=== PATIENT | female | born 1980 | race Caucasian/White ===

== ENCOUNTER 2016-10-10 18:07 | Inpatient (IN) | payer BC ==
[~2016-10-10] VITALS: Ht 172.7 cm; Wt 77.7 kg
[2016-10-10] MEDS ORDERED: SODIUM CHLORIDE 0.9% 1000ML 1,000 ML IV STA ×2 (18:32)
--- NOTE | 2016-10-10 18:49 | EMERGENCY ROOM VISIT NOTE ---
History Report prepared by Lexis: Dee Dee Berg Under the Supervision of: Dr. Leyla Foreman M.D. First contact with patient: 18:32 Chief Complaint: DIZZY Stated Complaint: KETOACIDOSIS,DIZZY Nursing Triage Summary: "Was traveling from [place] to [place] and my ketoacidosis is out of control. BSG >450" Has insulin pump. Dizzy, vomiting, weak. History of Present Illness The patient is a 35 year old female who presents to the Emergency Room with complaints of persistent vomiting that started around 1500 today. She states that she has been vomiting every 30 minutes. Associated symptoms include dizziness and weakness. The patient is a Type 1 diabetic with an insulin pump. She states that she has not been checking her blood sugar as regularly as she should be. When she does check it, it has consistently been over 450 for the past few days. The patient was traveling from [place] to [place] today when the vomiting started. She believes that she is experiencing ketoacidosis at this time. The patient adds that she suffers from depression, which she believes has caused her to be inconsistent with checking her blood sugar. The patient denies nausea at this time. Source of History: patient Onset: 1500 today Position: other (Global ) Timing: other (Persistent) Modifying Factors (Worsening): other (None) Associated Symptoms: + weakness, No nausea Review of Systems See HPI for pertinent positives & negatives. A total of 10 systems reviewed and were otherwise negative. Past Medical & Surgical Medical Problems: (1) Depression (2) Type 1 diabetes Surgical Problems: (1) History of appendectomy Family History FH: cancer FH: diabetes mellitus FH: hypertension FH: lung disease Social History Smoking Status: Never Smoker Drug Use: none Marital Status: single Housing Status: lives alone Occupation Status: employed Current/Historical Medications Scheduled Cephalexin (Keflex), 1 CAP PO BID Clonazepam (Klonopin), 0.5 MG PO BID Etonogestrel/Ethinyl Estradiol (Nuvaring), 1 EA VAGRING MONTHLY Ferrous Sulfate (Ferrous Sulfate), 325 MG PO BID Hydroxyzine Pamoate (Vistaril), 25 MG PO QID Insulin Human Lispro (Insulin Humalog Pump ), 1 EA N/A UD Lurasidone Hcl (Latuda), 60 MG PO DAILY Multiple Vitamins W/ Minerals (Womens One Daily), 1 TAB PO DAILY Vilazodone Hcl (Viibryd), 10 MG PO DAILY Allergies Coded Allergies: No Known Allergies (Unverified , 10/10/16) Physical Exam Vital Signs Date Time Temp Pulse Resp B/P Pulse Ox O2 Delivery O2 Flow Rate FiO2 10/10/16 21:26 119 22 129/69 96 Room Air 10/10/16 20:13 113 10/10/16 19:16 110 23 116/79 99 Room Air 10/10/16 18:20 37.3 99 22 93/60 97 Room Air Physical Exam Vital signs reviewed. General: Ill-appearing female, in no significant distress. HEENT: No scleral icterus, Dry mucous membranes PERRLA, neck supple. Atraumatic. Cardiovascular: Slightly tachycardic. Regular rhythm, no extra sounds. Pulmonary: Clear to auscultation bilaterally, normal work of breathing. Abdomen: Soft, nontender, nondistended, positive bowel sounds. Musculoskeletal: Atraumatic, no peripheral edema. Neurologic: Patient awake alert and oriented x 3, full strength in all 4 extremities. Cranial nerves 2 through 12 grossly intact. Skin: Warm, dry, no rash Medical Decision & Procedures Laboratory Results Test 10/10/16 18:40 10/10/16 18:44 10/10/16 19:02 10/10/16 20:10 Immature Granulocyte % (Auto) 0.3 % White Blood Count 8.85 K/uL (4.8-10.8) Red Blood Count 5.04 M/uL (4.2-5.4) Hemoglobin 13.6 g/dL (12.0-16.0) Hematocrit 39.8 % (37-47) Mean Corpuscular Volume 79.0 fL (80-100) Mean Corpuscular Hemoglobin 27.0 pg (25-34) Mean Corpuscular Hemoglobin Concent 34.2 g/dl (32-36) Platelet Count 315 K/uL (130-400) Mean Platelet Volume 11.8 fL (7.4-10.4) Neutrophils (%) (Auto) 82.4 % Lymphocytes (%) (Auto) 14.1 % Monocytes (%) (Auto) 2.3 % Eosinophils (%) (Auto) 0.3 % Basophils (%) (Auto) 0.6 % Neutrophils # (Auto) 7.29 K/uL (1.4-6.5) Lymphocytes # (Auto) 1.25 K/uL (1.2-3.4) Monocytes # (Auto) 0.20 K/uL (0.11-0.59) Eosinophils # (Auto) 0.03 K/uL (0-0.5) Basophils # (Auto) 0.05 K/uL (0-0.2) Immature Granulocyte # (Auto) 0.03 K/uL (0.00-0.02) Microcytosis PRESENT Total Bilirubin 0.6 mg/dl (0.2-1) Direct Bilirubin 0.2 mg/dl (0-0.2) Aspartate Amino Transf (AST/SGOT) 16 U/L (15-37) Alanine Aminotransferase (ALT/SGPT) 24 U/L (12-78) Alkaline Phosphatase 85 U/L (45-117) Total Protein 8.7 gm/dl (6.4-8.2) Albumin 4.4 gm/dl (3.4-5.0) Urine Color YELLOW Urine Appearance CLEAR (CLEAR) Urine pH 5.0 (4.5-7.5) Urine Specific [place] 1.025 (1.000-1.030) Urine Protein NEG (NEG) Urine Glucose (UA) 3+ (NEG) Urine Ketones 4+ (NEG) Urine Occult Blood NEG (NEG) Urine Nitrite NEG (NEG) Urine Bilirubin NEG (NEG) Urine Urobilinogen NEG (NEG) Urine Leukocyte Esterase NEG (NEG) Bedside Hemoglobin 15.6 g/dl (12.0-16.0) Bedside Hematocrit 46 % (37-47) Bedside Sodium 131 mEq/L (135-144) Bedside Potassium 4.3 mEq/L (3.3-5.0) Bedside Chloride 96 mEq/L (101-112) Bedside Total CO2 16 mEq/l (24-31) Bedside Blood Urea Nitrogen 22 mg/dl (7-18) Bedside Creatinine 1.0 mg/dl (0.6-1.3) Bedside Glucose (other) 497 mg/dl (70-99) Bedside Ionized Calcium (Lucita) 1.27 mmol/l (1.12-1.32) Arterial Blood pH 7.26 (7.35-7.45) Arterial Blood Partial Pressure CO2 24 mmHg (35-46) Arterial Blood Partial Pressure O2 108 mm/Hg (80-95) Arterial Blood HCO3 11 mmol/L (19-24) Arterial Blood Oxygen Saturation 97.7 % (90-95) Arterial Blood Base Excess -14.7 mEq/L (-9-1.8) Arterial Blood Gas Delivery ROOM AIR Nick Test POS (POS) Laboratory results per my review. Medications Administered Medications (Trade) Dose Ordered Sig/Fidel Route Start Time Stop Time Status Last Admin Dose Admin Sodium Chloride 1,000 ml @ 999 mls/hr Q1H1M STAT IV 10/10/16 18:32 10/10/16 19:32 DC 10/10/16 19:20 999 MLS/HR Sodium Chloride (Nss 1000ml) 1,000 ml @ 200 mls/hr Q5H STAT IV 10/10/16 18:32 10/10/16 23:31 DC 10/10/16 19:20 200 MLS/HR Ondansetron HCl (Zofran Inj) 4 mg STK-MED ONCE .ROUTE 10/10/16 20:25 10/10/16 20:28 DC 10/10/16 20:31 4 MG Insulin Human Regular (Insulin IV Infusion Protocol) 1 ea NOW STAT N/A 10/10/16 20:49 10/11/16 09:32 DC 10/10/16 21:20 1 EA Miscellaneous (Insulin Protocol Dka Goal Range) 1 ea ONE ONCE N/A 10/10/16 21:00 10/11/16 09:32 DC 10/10/16 21:20 1 EA Miscellaneous 1 ea 1 ea ONE ONCE N/A 10/10/16 21:00 10/11/16 09:33 DC 10/10/16 21:21 1 EA Insulin Human Regular 3 unit/ Syringe 3 ml @ 1 mls/min TODAY@2115 IV 10/10/16 21:15 10/10/16 21:17 DC 10/10/16 21:18 1 MLS/MIN Insulin Human Regular 250 units/ Sodium Chloride 252.5 ml @ 0 mls/hr DAILY@1130 IV 10/10/16 21:15 10/11/16 01:04 DC 10/10/16 21:20 2.9 MLS/HR Promethazine HCl/ Sodium Chloride (Phenergan Inj/ Nss 50ml) 50.5 ml @ 204 mls/hr NOW STAT IV 10/10/16 21:15 10/10/16 21:29 DC 10/10/16 21:26 204 MLS/HR ECG Indication: toxicologic Rate (beats per minute): 110 Rhythm: sinus tachycardia Findings: no acute ischemic change, no ectopy ED Course 1829: Past medical records reviewed. The patient was evaluated in room B6. A complete history and physical examination was performed. 1831: Ordered Sodium Chloride 1,000 ml @ 200 mls/hr IV, Sodium Chloride 1,000 ml @ 999 mls/hr IV. 2030: Ordered Zofran Injection 4 mg IV. 2048: Ordered Insulin Human Regular 1 ea. 2053: I reviewed the patient's case with Dr. Perales ([facility]) . He will evaluate the patient for further management. 2114: Ordered Promethazine HCL 12.5 mg/ Sodium Chloride 50.5 ml @ 204 mls/hr IV , Glucagon 1 mg SQ, Dextrose 50 ml IV, Glucose 1 tabs PO, Glucose 40% Gel PO, Insulin Human Regular 250 units/ Sodium Chloride 252.5 ml @ 0 mls/hr IV, Insulin Human Regular 3 unit/ Syringe 3 ml @ 1 mls/min IV. Medical Decision DDx: Metabolic abnormality, dehydration, electrolyte abnormality sepsis, viral illness, medication affect. This pt was evaluated and appeared to be in no distress. IV access was obtained and lab work was drawn. PT was hydrated with NSS, given IV zofran. Pt continued to be nauseated and was given IV phenergan. ABG was performed and reveals a pH of 7.26. Pt was started on an insulin gtt and d/w Dr Velazquez of the hospitalist service for further management. She is aware of the plan and agrees. Consults Time Called: 2049 Consulting Physician: Dr. Perales ([facility]) Returned Call: 2053 I reviewed the patient's case with Dr. Perales ([facility]) . He will evaluate the patient for further management. Impression Primary Impression: Diabetic keto-acidosis Critical Care I have personally spent greater than 35 minutes of critical care time in the direct management of this patient. This includes bedside care, interpretation of diagnostic studies, and testing, discussion with consultants, patient, and family members, and other required patient management activities. This 35 minutes is in excess of all separately billable procedures. Scribe Attestation The scribe's documentation has been prepared under my direction and personally reviewed by me in its entirety. I confirm that the note above accurately reflects all work, treatment, procedures, and medical decision making performed by me. Departure Information Dispostion Being Evaluated By Hospitalist Prescriptions Cephalexin (KEFLEX) 500 Mg Cap 1 CAP PO BID for 5 Days, #10 CAP Prov: Pat Lynn PA-C 10/12/16 Patient Instructions My [facility] Problem Qualifiers Primary Impression: Diabetic keto-acidosis Diabetes mellitus type: type 1 Diabetes mellitus complication detail: without coma Qualified Codes: E10.10 - Type 1 diabetes mellitus with ketoacidosis without coma
[2016-10-10 18:55] LABS: HEMATOCRIT 39.8 % (37-47); MEAN CORPUSCULAR HGB CONC 34.2 g/dl (32-36); MEAN PLATELET VOLUME 11.8 fL (7.4-10.4); PLATELET COUNT 315 K/uL (130-400); RED BLOOD COUNT 5.04 M/uL (4.2-5.4); WHITE BLOOD COUNT 8.85 K/uL (4.8-10.8)
[2016-10-10] MEDS ORDERED: HYDR25CA PO (19:06)
[2016-10-10] MEDS ORDERED: MULT-240 PO (19:06)
[2016-10-10] MEDS ORDERED: INSPMPHMLG (19:06)
[2016-10-10] MEDS ORDERED: VILA1TAB PO (19:06)
[2016-10-10] MEDS ORDERED: ETONMIS VAGRING (19:06)
[2016-10-10] MEDS ORDERED: FERR325T PO (19:06)
[2016-10-10] MEDS ORDERED: LURA1TAB3 PO (19:06)
[2016-10-10] MEDS ORDERED: CLON0.5T3 PO (19:06)
[2016-10-10 19:12] LABS: URINE APPEARANCE CLEAR (CLEAR); URINE BILIRUBIN NEG (NEG); URINE COLOR YELLOW; URINE NITRITE NEG (NEG); URINE SPECIFIC GRAVITY 1.025 (1.000-1.030); UROBILINOGEN NEG (NEG); ZZUR CULT IF INDIC CLEAN CATCH NO
[2016-10-10 19:15] LABS: MANUAL MICROSCOPIC REQUIRED? NO; REVIEW REQ? NO
[2016-10-10 19:18] LABS: ISTAT HEMOGLOBIN 15.6 g/dl (12.0-16.0); ISTAT IONIZED CALCIUM 1.27 mmol/l (1.12-1.32)
[2016-10-10 19:28] LABS: BUN/CREATININE RATIO 14.1 (10-20); CALCIUM 10.3 mg/dl (8.5-10.1); CREATININE 1.5 mg/dl (0.60-1.20); MAGNESIUM 2.1 mg/dl (1.8-2.4); POTASSIUM 4.1 mmol/L (3.5-5.1)
[2016-10-10 19:41] LABS: BASO % 0.6 %; BASO ABS # 0.05 K/uL (0-0.2); COMPLETE YES; EOS % 0.3 %; IG% 0.3 %; LYMPH % 14.1 %; LYMPH ABS # 1.25 K/uL (1.2-3.4); MICROCYTOSIS PRESENT; MONO % 2.3 %; NEUT % 82.4 %
[2016-10-10 20:01] LABS: BETA-HYDROXYBUTYRATE 70.23 mg/dL (0.2-2.81)
[2016-10-10 20:24] LABS: ARTERIAL BLD GAS O2 SATURATION 97.7 % (90-95); ARTERIAL BLOOD GAS BASE EXCESS -14.7 mEq/L (-9-1.8); ARTERIAL BLOOD GAS HCO3 11 mmol/L (19-24); ARTERIAL BLOOD GAS PO2 108 mm/Hg (80-95); ARTERIAL BLOOD GAS pH 7.26 (7.35-7.45)
[2016-10-10 20:25] LABS: ALLEN TEST POS (POS); O2 ADMINISTRATION ROOM AIR
[2016-10-10] MEDS ORDERED: ONDANSETRON INJ 2 MG/ML 2 ML VIAL ONE (20:25)
[2016-10-10] MEDS ORDERED: ONDANSETRON INJ 2 MG/ML 2 ML VIAL IV STA (20:31)
[2016-10-10] MEDS ORDERED: INSULIN IV INFUSION PROTOCOL STA ×2 (20:49→23:04)
[2016-10-10] MEDS ORDERED: DKA GOAL RANGE 150-250 mg/dl 1 EA ONE ×2 (21:00→23:15)
[2016-10-10] MEDS ORDERED: SEVERE STRESS LEVEL ONE (21:00)
[2016-10-10] MEDS ORDERED: GLUCOSE 40% GEL 15 GM TUBE PO PRN (21:15)
[2016-10-10] MEDS ORDERED: PROMETHAZINE HCL INJ 12.5 MG in SODIUM CHLORIDE 0.9% 50ML 50 ML IV STA (21:15)
[2016-10-10] MEDS ORDERED: GLUCOSE 10 TABS/TUBE PO PRN (21:15)
[2016-10-10] MEDS ORDERED: INSULIN HUMAN REGULAR IV BOLUS 3 UNIT in SYRINGE 0 ML IV SCH (21:15)
[2016-10-10] MEDS ORDERED: GLUCAGON FOR INJ 1 MG VIAL SQ PRN (21:15)
[2016-10-10] MEDS ORDERED: INSULIN REGULAR 250 UNITS in SODIUM CHLORIDE 0.9% 250ML 250 ML IV SCH (21:15)
[2016-10-10] MEDS ORDERED: DEXTROSE 50% 50 ML SYR IV PRN (21:15)
[2016-10-10] MEDS ORDERED: ZOLPIDEM TARTRATE 5 MG TAB PO PRN (23:00)
[2016-10-10] MEDS ORDERED: ACETAMINOPHEN 325 MG TAB PO PRN (23:00)
[2016-10-10] MEDS ORDERED: D5W AND 1/2NSS + 20MEQ KCL 1,000 ML IV PRN (23:15)
[2016-10-10] MEDS ORDERED: MODERATE STRESS LEVEL ONE (23:15)
[2016-10-11] VITALS (7 sets, daily range): BP systolic 99–114; BP diastolic 58–73; PULSE 87–101; TEMP 36.8–37.4; O2SAT 96–100; Ht 172.7 cm; Wt 77.7 kg
[2016-10-11 00:15] LABS: BUN/CREATININE RATIO 17.8 (10-20); CALCIUM 8.8 mg/dl (8.5-10.1); CREATININE 1.2 mg/dl (0.60-1.20); MAGNESIUM 2.3 mg/dl (1.8-2.4); POTASSIUM 4.7 mmol/L (3.5-5.1)
[2016-10-11] MEDS: INSULIN REGULAR 250 UNITS in SODIUM CHLORIDE 0.9% 250ML 250 ML IV SCH ×2 (01:00→03:00)
[2016-10-11] MEDS ORDERED: NSS + 20MEQ KCL 1000ML 1,000 ML IV SCH (01:00)
[2016-10-11 01:03] LABS: BETA-HYDROXYBUTYRATE 60.1 mg/dL (0.2-2.81)
[2016-10-11] MEDS ORDERED: GLUCOSE 10 TABS/TUBE PO PRN (01:15)
[2016-10-11] MEDS ORDERED: GLUCOSE 40% GEL 15 GM TUBE PO PRN (01:15)
[2016-10-11] MEDS ORDERED: DEXTROSE 50% 50 ML SYR IV PRN (01:15)
[2016-10-11] MEDS ORDERED: GLUCAGON FOR INJ 1 MG VIAL SQ PRN (01:15)
--- NOTE | 2016-10-11 04:01 | History and Physical ---
History & Physical Date & Time of Service: Oct 11, 2016 at 03:51 Chief Complaint: Diabetic Keto-Acidosis, Type 1 Diabetes Primary Care Physician: No Doctor, Assigned History of Present Illness Source: patient The patient is a 35-year-old female who reports to the emergency department with complaint of vomiting every 30 minutes since around 1500 hrs. earlier in the day, approximately 3 have hours ago. She is a type I diabetic with an insulin pump, and reports that she has not been good about checking her blood sugars lately. She did have urinary symptoms about 2-1/2 weeks ago and went see her PCP, and then followed up about 2 weeks later and was told she'll urinary tract infection and was started on Augmentin at that time. She was unaware traveling from [facility] today and when the vomiting started she presented to the emergency department at [facility]. She has had several episodes of DKA in the past requiring hospitalization, with most recent being 2 years ago. She has been more depressed recently, and she attributes inconsistency which checking her blood sugar secondary to depression. Past Medical/Surgical History Medical Problems: (1) Depression Status: Chronic (2) Type 1 diabetes Status: Chronic Surgical Problems: (1) History of appendectomy Status: Resolved Family History FH: cancer FH: diabetes mellitus FH: hypertension FH: lung disease Social History Smoking Status: Never Smoker Smokeless Tobacco Use: No Alcohol Use: none Drug Use: none Marital Status: single Occupational Status: employed Multi-Drug Resistant Organisms History of MDRO: No Allergies Coded Allergies: No Known Allergies (Unverified , 10/10/16) Home Medications Scheduled Clonazepam (Klonopin), 0.5 MG PO BID Etonogestrel/Ethinyl Estradiol (Nuvaring), 1 EA VAGRING MONTHLY Ferrous Sulfate (Ferrous Sulfate), 325 MG PO BID Hydroxyzine Pamoate (Vistaril), 25 MG PO QID Insulin Human Lispro (Insulin Humalog Pump ), 1 EA N/A UD Lurasidone Hcl (Latuda), 60 MG PO DAILY Multiple Vitamins W/ Minerals (Womens One Daily), 1 TAB PO DAILY Vilazodone Hcl (Viibryd), 10 MG PO DAILY Review of Systems The patient denies chest pain, palpitations, shortness of breath, cough, lower extremity swelling, vision change, hearing change, sore throat, fevers, chills, sweats, pelvic pain, blood in urine or stool, urinary frequency or urgency, headache, rash, abnormal bruising or bleeding, imbalance, focal weakness, numbness or tingling in arms or legs, arthralgias or myalgias, back or neck pain , night sweats, or allergy symptoms. The review of systems is otherwise negative other than for that already noted above, and at least 10 systems have been reviewed. Physical Exam Vital Signs Date Time Temp Pulse Resp B/P Pulse Ox O2 Delivery O2 Flow Rate FiO2 10/11/16 01:00 37.4 101 18 114/73 Room Air 10/11/16 00:28 110 18 119/66 100 10/10/16 21:26 119 22 129/69 96 Room Air 10/10/16 20:13 113 10/10/16 19:16 110 23 116/79 99 Room Air 10/10/16 18:20 37.3 99 22 93/60 97 Room Air The patient is awake, well-developed and adequately nourished, alert and oriented 3, normocephalic and atraumatic, lying in bed and in no acute distress , but has frequent word finding issues and speaks slowly. HEENT--PERRL, EOMI, mucous membranes and oropharynx dry. Neck--supple, no JVD or bruits, thyroid normal, trachea midline, no adenopathy. Heart--normal S1 and S2, no extra beats, no murmurs, rubs or gallops. Lungs--clear bilaterally with good air movement, no respiratory distress, no accessory muscle use. Abdomen--normal bowel sounds and soft, nontender and nondistended, no hernias or masses, no organomegaly. Extremities--no cyanosis, clubbing or edema. There are good distal pulses b/l. Dermatologic--normal skin turgor, normal color, warm and dry, no abnormal lymph nodes, no rash. Neurologic--cranial nerves II through XII grossly intact, motor and sensory examination normal. Rheumatologic--normal range of motion, nontender, muscles and joints. Psychiatric--normal affect. Diagnostics Laboratory Results Results Past 24 Hours Test 10/10/16 18:26 10/10/16 18:40 10/10/16 18:44 10/10/16 19:02 Range/Units Bedside Glucose 533 70-90 mg/dl White Blood Count 8.85 4.8-10.8 K/uL Red Blood Count 5.04 4.2-5.4 M/uL Hemoglobin 13.6 12.0-16.0 g/dL Hematocrit 39.8 37-47 % Mean Corpuscular Volume 79.0 80-100 fL Mean Corpuscular Hemoglobin 27.0 25-34 pg Mean Corpuscular Hemoglobin Concent 34.2 32-36 g/dl Platelet Count 315 130-400 K/uL Mean Platelet Volume 11.8 7.4-10.4 fL Neutrophils (%) (Auto) 82.4 % Lymphocytes (%) (Auto) 14.1 % Monocytes (%) (Auto) 2.3 % Eosinophils (%) (Auto) 0.3 % Basophils (%) (Auto) 0.6 % Neutrophils # (Auto) 7.29 1.4-6.5 K/uL Lymphocytes # (Auto) 1.25 1.2-3.4 K/uL Monocytes # (Auto) 0.20 0.11-0.59 K/uL Eosinophils # (Auto) 0.03 0-0.5 K/uL Basophils # (Auto) 0.05 0-0.2 K/uL RDW Standard Deviation 37.0 36.4-46.3 fL RDW Coefficient of Variation 13.0 11.5-14.5 % Immature Granulocyte % (Auto) 0.3 % Immature Granulocyte # (Auto) 0.03 0.00-0.02 K/uL Microcytosis PRESENT Sodium Level 127 136-145 mmol/L Potassium Level 4.1 3.5-5.1 mmol/L Chloride Level 90 98-107 mmol/L Carbon Dioxide Level 13 21-32 mmol/L Anion Gap 24.0 25.0 16-25 mmol/L Blood Urea Nitrogen 21 7-18 mg/dl Creatinine 1.50 0.60-1.20 mg/dl Est Creatinine Clear Calc Drug Dose 58.2 ml/min Estimated GFR () 52.5 Estimated GFR (Non- 45.3 BUN/Creatinine Ratio 14.1 10-20 Random Glucose 483 70-99 mg/dl Calcium Level 10.3 8.5-10.1 mg/dl Magnesium Level 2.1 1.8-2.4 mg/dl Total Bilirubin 0.6 0.2-1 mg/dl Direct Bilirubin 0.2 0-0.2 mg/dl Aspartate Amino Transf (AST/SGOT) 16 15-37 U/L Alanine Aminotransferase (ALT/SGPT) 24 12-78 U/L Alkaline Phosphatase 85 45-117 U/L Total Protein 8.7 6.4-8.2 gm/dl Albumin 4.4 3.4-5.0 gm/dl Beta-Hydroxybutyric Acid 70.23 0.2-2.81 mg/dL Urine Color YELLOW Urine Appearance CLEAR CLEAR Urine pH 5.0 4.5-7.5 Urine Specific Goodman 1.025 1.000-1.030 Urine Protein NEG NEG Urine Glucose (UA) 3+ NEG Urine Ketones 4+ NEG Urine Occult Blood NEG NEG Urine Nitrite NEG NEG Urine Bilirubin NEG NEG Urine Urobilinogen NEG NEG Urine Leukocyte Esterase NEG NEG Bedside Hemoglobin 15.6 12.0-16.0 g/dl Bedside Hematocrit 46 37-47 % Bedside Sodium 131 135-144 mEq/L Bedside Potassium 4.3 3.3-5.0 mEq/L Bedside Chloride 96 101-112 mEq/L Bedside Total CO2 16 24-31 mEq/l Bedside Blood Urea Nitrogen 22 7-18 mg/dl Bedside Creatinine 1.0 0.6-1.3 mg/dl Bedside Glucose (other) 497 70-99 mg/dl Bedside Ionized Calcium (Lucita) 1.27 1.12-1.32 mmol/l Test 10/10/16 20:10 10/10/16 20:58 10/10/16 22:42 10/10/16 23:40 Range/Units Arterial Blood pH 7.26 7.35-7.45 Arterial Blood Partial Pressure CO2 24 35-46 mmHg Arterial Blood Partial Pressure O2 108 80-95 mm/Hg Arterial Blood HCO3 11 19-24 mmol/L Arterial Blood Oxygen Saturation 97.7 90-95 % Arterial Blood Base Excess -14.7 -9-1.8 mEq/L Arterial Blood Gas Delivery ROOM AIR Nick Test POS POS Bedside Glucose 432 382 70-90 mg/dl Sodium Level 138 136-145 mmol/L Potassium Level 4.7 3.5-5.1 mmol/L Chloride Level 105 98-107 mmol/L Carbon Dioxide Level 14 21-32 mmol/L Anion Gap 19.0 3-11 mmol/L Blood Urea Nitrogen 21 7-18 mg/dl Creatinine 1.20 0.60-1.20 mg/dl Est Creatinine Clear Calc Drug Dose 72.8 ml/min Estimated GFR () 68.8 Estimated GFR (Non- 59.3 BUN/Creatinine Ratio 17.8 10-20 Random Glucose 313 70-99 mg/dl Calcium Level 8.8 8.5-10.1 mg/dl Magnesium Level 2.3 1.8-2.4 mg/dl Beta-Hydroxybutyric Acid 60.10 0.2-2.81 mg/dL Test 10/11/16 00:25 10/11/16 01:03 10/11/16 02:07 10/11/16 03:02 Range/Units Bedside Glucose 268 242 213 172 70-90 mg/dl Impression Assessment and Plan Type I diabetic, on insulin pump, with recurrence of DKA--the patient has already been started on insulin drip in the emergency department. She'll be admitted to the telemetry unit for close sugar monitoring. We'll follow serial BMP, magnesium and be hydroxybutyric levels. She'll initially be placed on normal saline with potassium chloride 20 mEq at 150 ML's per hour, and will change to D5 half-normal saline with 20 mEq of potassium chloride at 150 mils per hour when her blood sugar is less than 250. As noted, she has not been very good at checking her blood sugars recently, and they likely have been worsened due to a urinary tract infection which is probably been present for at least 2 weeks and untreated. UTI--place on ceftriaxone 1 g IV daily, follow urine culture and sensitivity reports. Depression/anxiety--continue clonazepam 0.5 mg by mouth twice a day, Vistaril 25 mg by mouth 4 times a day, Latuda 60 mg by mouth daily, and Viibryd 10 mg by mouth daily. Contraception--on NuvaRing monthly. Iron deficiency--continue ferrous sulfate 325 mg by mouth twice a day. Level of Care Telemetry Advanced Directives Existing Advance Directive: No Existing Living Will: No Existing Power of Collective Bargaining Specialist: No Resuscitation Status FULL RESUSCITATION VTE Prophylaxis VTE Risk Assessment Done? Y/N: Yes Risk Level: Moderate Given or contraindicated: SCD's Social Service Consult None Apply
[2016-10-11] MEDS ORDERED: CEFTRIAXONE SOD INJ 1 GM in DEXTROSE 5% ADD-VANTAGE 50ML 50 ML IV SCH (04:15)
[2016-10-11] MEDS ORDERED: D5W AND 1/2NSS + 20MEQ KCL 1,000 ML IV SCH (04:15)
[2016-10-11] MEDS: CLONAZEPAM 0.5 MG TAB PO SCH ×2 (08:32→21:08)
[2016-10-11] MEDS: FERROUS SULFATE 325 MG TAB PO SCH ×2 (08:33→17:24)
[2016-10-11] MEDS: LACTOBACILLUS ACIDOPHILUS (FLORANEX) TAB PO SCH ×3 (08:33→17:24)
[2016-10-11] MEDS: hydrOXYzine HCL 25 MG TAB PO SCH ×4 (08:33→21:09)
[2016-10-11] MEDS: CEROVITE ADV FORMULA TAB PO SCH (08:34)
[2016-10-11] MEDS: VIIBRYD~ORDER AWAITING ACTION SCH ×3 (08:34→22:27)
[2016-10-11 08:45] LABS: MEAN CORPUSCULAR HEMOGLOBIN 27.1 pg (25-34); MEAN CORPUSCULAR HGB CONC 34.7 g/dl (32-36); MEAN PLATELET VOLUME 11.5 fL (7.4-10.4); PLATELET COUNT 290 K/uL (130-400); WHITE BLOOD COUNT 8.07 K/uL (4.8-10.8)
[2016-10-11] MEDS ORDERED: NURSING VERBAL MED ORDER ONE ×2 (08:45→19:15)
[2016-10-11] MEDS ORDERED: INSULIN GLARGINE SOLOSTAR 100 UNITS/ML 3 ML PEN SC SCH (09:00)
[2016-10-11] MEDS ORDERED: LURASIDONE HCL 40 MG TAB PO SCH ×2 (09:00→21:00)
[2016-10-11] MEDS ORDERED: INSULIN ASPART 100 UNITS/ML 3 ML PEN SC SCH (09:00)
[2016-10-11 09:04] LABS: BUN/CREATININE RATIO 16.5 (10-20); CALCIUM 8.5 mg/dl (8.5-10.1); CREATININE 0.95 mg/dl (0.60-1.20); MAGNESIUM 2.2 mg/dl (1.8-2.4)
[2016-10-11] MEDS: INSULIN GLARGINE SOLOSTAR 100 UNITS/ML 3 ML PEN SC SCH (10:33)
[2016-10-11] MEDS: INSULIN ASPART 100 UNITS/ML 3 ML PEN SC SCH ×3 (12:31→20:10)
--- NOTE | 2016-10-11 13:38 | Progress Note ---
Subjective Date of Service: Oct 11, 2016. (Pat Lynn PA-C) Date of Service: 10/11/16 agree with PA note T1DM since age 8, non compliant, checks glucose x2 a day (Jeremiah Ricks MD) Subjective Pt evaluation today including: conversation w/ patient, physical exam, chart review, lab review, review of studies, review of inpatient medication list Patient seen and evaluated. Glucose improved with insulin gtt and plan to D/C Patient is alert and oriented but displays slowed though processes and memory deficits. Appears baseline. She states her desk monitor has made note that she does not adequately rotate sites on her insulin pump as well as does not check glucose regularly States she checks twice a day and will just estimate boluses instead of utilizing glucose readings to adjust bolus in addition to her basal rate. Has a sensor that she appears to be compliant with site rotation. She has been using a pump since 2000. Discussed options of adjusting insulin regimen and consideration of not using pump until follow-up however patient is adamant about letting her desk monitor adjust insulin. Did discuss risk related to poor compliance and lack of glucose monitoring with a pump and patient verbalized understanding and wants to still use her desk monitor. She states she is able to call and set up an appointment easily and recommend that she call them as soon as possible to continue care. (Pat Lynn PA-C) Problem List Medical Problems: (1) Diabetic keto-acidosis Status: Acute (Pat Lynn PA-C) Review of Systems Constitutional: No chills, No fever Respiratory: No cough, No shortness of breath Cardiac: No chest pain Abdomen: No constipation, No diarrhea, No nausea, No pain, No vomiting Musculoskeletal: No calf pain, No swelling Female : No dysuria Heme: No abnormal bleeding/bruising Skin: No rash (Pat Lynn PA-C) Constitutional: No fever Eyes: No worsening of vision ENT: No hearing loss Respiratory: No cough Cardiac: No chest pain Abdomen: No pain Female : No dysuria Psychiatric: No depression symptoms Endo: No fatigue (Jeremiah Ricks MD) Medications Current Inpatient Medications Medications (Trade) Dose Ordered Sig/Fidel Route Start Time Stop Time Status Last Admin Dose Admin Acetaminophen (Tylenol Tab) 650 mg Q4H PRN PO 10/10/16 23:00 11/09/16 22:59 Zolpidem Tartrate (Ambien Tab) 5 mg HSZ PRN PO 10/10/16 23:00 11/09/16 22:59 Clonazepam (Klonopin Tab) 0.5 mg BID PO 10/11/16 09:00 11/10/16 08:59 10/11/16 08:32 0.5 MG Multivitamins/ Minerals (Multivitamin W/ Minerals Tab) 1 tab DAILY PO 10/11/16 09:00 11/10/16 08:59 10/11/16 08:34 1 TAB Ferrous Sulfate (Feosol Tab) 325 mg BIDM PO 10/11/16 08:00 11/10/16 07:59 10/11/16 08:33 325 MG Hydroxyzine HCl (Vistaril Tab) 25 mg QID PO 10/11/16 09:00 11/10/16 08:59 10/11/16 08:33 25 MG Miscellaneous Information (Order Awaiting Action) 1 ea QS N/A 10/11/16 08:00 11/10/16 07:59 Glucose (Glucose 40% Gel) UD PRN PO 10/11/16 01:15 11/10/16 01:14 Glucose (Glucose Chew Tab) 1 tabs UD PRN PO 10/11/16 01:15 11/10/16 01:14 Dextrose (Dextrose 50% 50ML Syringe) 50 ml UD PRN IV 10/11/16 01:15 11/10/16 01:14 Glucagon 1 mg 1 mg UD PRN SQ 10/11/16 01:15 11/10/16 01:14 Ceftriaxone Sodium/Dextrose (Rocephin Inj/ Dextrose Add-Laurel 50ML) 50 ml @ 100 mls/hr Q24H IV 10/11/16 04:15 10/16/16 04:14 10/11/16 04:28 100 MLS/HR Lactobacillus Acidophilus (Floranex Tab) 4 tab TIDM PO 10/11/16 08:00 11/10/16 07:59 10/11/16 08:33 4 TAB Lurasidone HCl (Latuda Tab) 60 mg QPM PO 10/11/16 21:00 11/10/16 20:59 Insulin Glargine (Lantus Solostar Pen) 16 unit DAILY [place] 10/11/16 10:00 11/10/16 09:59 10/11/16 10:33 16 UNIT Insulin Aspart (novoLOG ASPART) SLIDING SCALE G... ACHS [place] 10/11/16 11:00 11/10/16 10:59 (Pat Lynn PA-C) Objective Vital Signs Date Time Temp Pulse Resp B/P Pulse Ox O2 Delivery O2 Flow Rate FiO2 10/11/16 12:15 Room Air 10/11/16 08:30 Room Air 10/11/16 08:02 36.8 91 16 99/58 97 Room Air 10/11/16 04:29 37.3 99 20 103/63 98 Room Air 10/11/16 04:00 Room Air 10/11/16 01:00 37.4 101 18 114/73 Room Air 10/11/16 00:28 110 18 119/66 100 10/10/16 21:26 119 22 129/69 96 Room Air 10/10/16 20:13 113 10/10/16 19:16 110 23 116/79 99 Room Air 10/10/16 18:20 37.3 99 22 93/60 97 Room Air (Pat Lynn, PA-C) Physical Exam General Appearance: WD/WN, no apparent distress Eyes: sclerae normal ENT: hearing grossly normal Neck: supple, no JVD, trachea midline Respiratory/Chest: lungs clear, normal breath sounds, no respiratory distress, no accessory muscle use Cardiovascular: regular rate, rhythm, no gallop, no murmur Abdomen: normal bowel sounds, non tender, soft Extremities: no pedal edema, no calf tenderness Neurologic/Psychiatric: alert, oriented x 3, + pertinent finding (mental slowing; prolonged time for verbal responses) Skin: normal color, warm/dry (Pat Lynn, PA-C) General Appearance: WD/WN, no apparent distress Eyes: normal inspection, EOMI ENT: hearing grossly normal, pharynx normal Neck: supple, no JVD Respiratory/Chest: lungs clear, no accessory muscle use Cardiovascular: regular rate, rhythm, no JVD Abdomen: normal bowel sounds, no organomegaly Extremities: normal range of motion, non-tender Neurologic/Psychiatric: alert, oriented x 3 Skin: warm/dry, no rash (Jeremiah Ricks MD) Laboratory Results Last 24 Hours Test 10/10/16 18:26 10/10/16 18:40 10/10/16 18:44 10/10/16 19:02 Bedside Glucose 533 mg/dl White Blood Count 8.85 K/uL Red Blood Count 5.04 M/uL Hemoglobin 13.6 g/dL Hematocrit 39.8 % Mean Corpuscular Volume 79.0 fL Mean Corpuscular Hemoglobin 27.0 pg Mean Corpuscular Hemoglobin Concent 34.2 g/dl Platelet Count 315 K/uL Mean Platelet Volume 11.8 fL Neutrophils (%) (Auto) 82.4 % Lymphocytes (%) (Auto) 14.1 % Monocytes (%) (Auto) 2.3 % Eosinophils (%) (Auto) 0.3 % Basophils (%) (Auto) 0.6 % Neutrophils # (Auto) 7.29 K/uL Lymphocytes # (Auto) 1.25 K/uL Monocytes # (Auto) 0.20 K/uL Eosinophils # (Auto) 0.03 K/uL Basophils # (Auto) 0.05 K/uL RDW Standard Deviation 37.0 fL RDW Coefficient of Variation 13.0 % Immature Granulocyte % (Auto) 0.3 % Immature Granulocyte # (Auto) 0.03 K/uL Microcytosis PRESENT Sodium Level 127 mmol/L Potassium Level 4.1 mmol/L Chloride Level 90 mmol/L Carbon Dioxide Level 13 mmol/L Anion Gap 24.0 mmol/L 25.0 mmol/L Blood Urea Nitrogen 21 mg/dl Creatinine 1.50 mg/dl Est Creatinine Clear Calc Drug Dose 58.2 ml/min Estimated GFR () 52.5 Estimated GFR (Non- 45.3 BUN/Creatinine Ratio 14.1 Random Glucose 483 mg/dl Calcium Level 10.3 mg/dl Magnesium Level 2.1 mg/dl Total Bilirubin 0.6 mg/dl Direct Bilirubin 0.2 mg/dl Aspartate Amino Transf (AST/SGOT) 16 U/L Alanine Aminotransferase (ALT/SGPT) 24 U/L Alkaline Phosphatase 85 U/L Total Protein 8.7 gm/dl Albumin 4.4 gm/dl Beta-Hydroxybutyric Acid 70.23 mg/dL Urine Color YELLOW Urine Appearance CLEAR Urine pH 5.0 Urine Specific Radisson 1.025 Urine Protein NEG Urine Glucose (UA) 3+ Urine Ketones 4+ Urine Occult Blood NEG Urine Nitrite NEG Urine Bilirubin NEG Urine Urobilinogen NEG Urine Leukocyte Esterase NEG Bedside Hemoglobin 15.6 g/dl Bedside Hematocrit 46 % Bedside Sodium 131 mEq/L Bedside Potassium 4.3 mEq/L Bedside Chloride 96 mEq/L Bedside Total CO2 16 mEq/l Bedside Blood Urea Nitrogen 22 mg/dl Bedside Creatinine 1.0 mg/dl Bedside Glucose (other) 497 mg/dl Bedside Ionized Calcium (Lucita) 1.27 mmol/l Test 10/10/16 20:10 10/10/16 20:58 10/10/16 22:42 10/10/16 23:40 Arterial Blood pH 7.26 Arterial Blood Partial Pressure CO2 24 mmHg Arterial Blood Partial Pressure O2 108 mm/Hg Arterial Blood HCO3 11 mmol/L Arterial Blood Oxygen Saturation 97.7 % Arterial Blood Base Excess -14.7 mEq/L Arterial Blood Gas Delivery ROOM AIR Nick Test POS Bedside Glucose 432 mg/dl 382 mg/dl Sodium Level 138 mmol/L Potassium Level 4.7 mmol/L Chloride Level 105 mmol/L Carbon Dioxide Level 14 mmol/L Anion Gap 19.0 mmol/L Blood Urea Nitrogen 21 mg/dl Creatinine 1.20 mg/dl Est Creatinine Clear Calc Drug Dose 72.8 ml/min Estimated GFR () 68.8 Estimated GFR (Non- 59.3 BUN/Creatinine Ratio 17.8 Random Glucose 313 mg/dl Calcium Level 8.8 mg/dl Magnesium Level 2.3 mg/dl Beta-Hydroxybutyric Acid 60.10 mg/dL Test 10/11/16 00:25 10/11/16 01:03 10/11/16 02:07 10/11/16 03:02 Bedside Glucose 268 mg/dl 242 mg/dl 213 mg/dl 172 mg/dl Test 10/11/16 05:02 10/11/16 07:02 10/11/16 08:02 10/11/16 08:55 Bedside Glucose 150 mg/dl 166 mg/dl 153 mg/dl White Blood Count 8.07 K/uL Red Blood Count 4.10 M/uL Hemoglobin 11.1 g/dL Hematocrit 32.0 % Mean Corpuscular Volume 78.0 fL Mean Corpuscular Hemoglobin 27.1 pg Mean Corpuscular Hemoglobin Concent 34.7 g/dl RDW Standard Deviation 37.6 fL RDW Coefficient of Variation 13.1 % Platelet Count 290 K/uL Mean Platelet Volume 11.5 fL Sodium Level 134 mmol/L Potassium Level 4.0 mmol/L Chloride Level 104 mmol/L Carbon Dioxide Level 21 mmol/L Anion Gap 9.0 mmol/L Blood Urea Nitrogen 16 mg/dl Creatinine 0.95 mg/dl Est Creatinine Clear Calc Drug Dose 91.9 ml/min Estimated GFR () 91.2 Estimated GFR (Non- 78.7 BUN/Creatinine Ratio 16.5 Random Glucose 155 mg/dl Calcium Level 8.5 mg/dl Magnesium Level 2.2 mg/dl Beta-Hydroxybutyric Acid 7.09 mg/dL Test 10/11/16 11:59 Bedside Glucose 174 mg/dl (Pat Lynn, PA-C) Assessment and Plan Diabetic Ketoacidosis - T1DM: - Treated with insulin gtt that has been D/C'd as improvement of glucose warranted - Lantus 16 units x 1 with gtt D/C'd one hour after injection and D/C'd D5 1/2 NSS - SSI with goal of 100-180, correction factor 30, and carb ratio 1:10 Urinary Tract Infection: - Evaluated in an [facility] and reports UTI and Abx for sinusitis - due to memory deficits she is a poor historian -- Report she was given a medication with a Z (cannot confirm z-karly) and Augmentin for sinusitis - No Cx sent on ED urinalysis - Rocephin 1 g IV daily - can convert to a po medication that will cover urine and URI symptoms however likely those symptoms viral Depression/Anxiety: - Clonazepam 0.5 mg BID and Vistaril 25 mg QID - Latuda 60 mg daily and Viibryd 10 mg daily Iron Deficiency: Ferrous Sulfate 325 mg BID Contraception: NuvaRing monthly Disposition: Patient reports non-compliance with site changes of pump and glucose checks. Placed an order for perinatal educator. Discussed adjusting insulin needs acutely upon discharge due to this non-compliance and poor control. Patient would like to defer adjustments to her endocrinologists and reports she is able to get an appointment easily and will call them upon discharge. During discussion patient appears slow to respond and seemed to have memory deficits. Appears this is baseline and question of depression plus current medication regimen if this is contributing to her non-compliance. Patient does report feelings of depression. Hopeful discharge tomorrow pending glucose control (Pat Lynn, PARanchoC) Diabetic Ketoacidosis in the setting of hx T1DM: cont tele stop insulin drip and start Lantus 16 units x 1 with gtt D/C'd one hour after injection and D/C'd D5 1/2 NSS SSI with goal of 100-180, correction factor 30, and carb ratio 1:10 consult community nutrition educator, candidate to continue a pump? Urinary Tract Infection: reviewed ua, no UTI, stop Rocephin 1 g IV daily Depression/Anxiety: cont Clonazepam 0.5 mg BID and Vistaril 25 mg QID cont Latuda 60 mg daily and Viibryd 10 mg daily Iron Deficiency: Ferrous Sulfate 325 mg BID Contraception: NuvaRing monthly Disposition: Patient reports non-compliance with site changes of pump and glucose checks. Placed an order for perinatal educator. Discussed adjusting insulin needs acutely upon discharge due to this non-compliance and poor control. Patient would like to defer adjustments to her endocrinologists and reports she is able to get an appointment easily and will call them upon discharge. Hopeful discharge tomorrow pending glucose control (Jeremiah Ricks MD)
[2016-10-11] MEDS ORDERED: INSULIN GLARGINE SOLOSTAR 100 UNITS/ML 3 ML PEN SC STA (19:14)
[2016-10-12 04:25] VITALS: BP 105/71; PULSE 78; TEMP 36.8; O2SAT 98
[2016-10-12 08:00] VITALS: BP 100/66; PULSE 90; TEMP 36.9; O2SAT 97
[2016-10-12] MEDS: VIIBRYD~ORDER AWAITING ACTION SCH (08:00)
[2016-10-12] MEDS: CLONAZEPAM 0.5 MG TAB PO SCH (08:43)
[2016-10-12] MEDS: CEROVITE ADV FORMULA TAB PO SCH (08:43)
[2016-10-12] MEDS: hydrOXYzine HCL 25 MG TAB PO SCH (08:43)
[2016-10-12] MEDS: LACTOBACILLUS ACIDOPHILUS (FLORANEX) TAB PO SCH (08:43)
[2016-10-12] MEDS: FERROUS SULFATE 325 MG TAB PO SCH (08:44)
[2016-10-12] MEDS: INSULIN ASPART 100 UNITS/ML 3 ML PEN SC SCH (08:47)
[2016-10-12] MEDS: INSULIN GLARGINE SOLOSTAR 100 UNITS/ML 3 ML PEN SC SCH (08:47)
[2016-10-12] MEDS ORDERED: CEPH-571 PO (09:22)
--- NOTE | 2016-10-12 09:34 | Discharge Instructions ---
Discharge Instructions Admission Reason for Admission: Diabetic Keto-Acidosis, Type 1 Diabetes Discharge Discharge Diagnosis / Problem: Diabetic Ketoacidosis with Type 1 Diabetes Discharge Goals Goal(s): Decrease discomfort, Improve disease control, Learn about illness Activity Recommendations Activity Limitations: resume your previous activity . Instructions / Follow-Up Instructions / Follow-Up Diabetic Ketoacidosis - T1DM: - Please resume your insulin pump and please call your applied biology professor in regards to basal rate and any needed adjustments. - It is important to check your sugar with meals and at bedtime. During periods of illness you may need to check your sugar more frequently -- When you get an illness your insulin needs will actually increase and without proper insulin dosing you can have dangerously high sugar levels - Give insulin boluses as necessary based on your sugar readings to make sure adequate coverage is received - Please continue to rotate site of your pump as advised to help promote adequate absorption of insulin. Signs and Symptoms of Hyperglycemia or Ketoacidosis: - Excessive thirst, urination - Nausea and vomiting - Abdominal Pain - Weakness or Fatigue - Shortness of Breath or Fruity-smelling breathing - Confusion Urinary Tract Infection and Upper Respiratory Infection: - These infections may have contributed to your increased sugar levels and we will continue to treat. - We gave you antibiotics in the hospital and will finish out a course to cover these infections - Keflex 500 mg tablets to take twice a day for 5 more days. - a prescription will be provided Follow-Up: - Please contact your Property Field Adjuster in regards to recent hospitalization and to adjust insulin needs if warranted Current Hospital Diet Patient's current hospital diet: Diabetes Type 1 Diet Discharge Diet Recommended Diet: Diabetes Type 1 Diet Pending Studies Studies pending at discharge: no Medical Emergencies . Who to Call and When: Medical Emergencies: If at any time you feel your situation is an emergency, please call 911 immediately. . Non-Emergent Contact Non-Emergency issues call your: Primary Care Provider Call Non-Emergent contact if: you have a fever, your pain is concerning you, you have any medication questions . . "Provider Documentation" section prepared by Pat Lynn. VTE Core Measure Inpt VTE Proph given/why not?: SCD's
[2016-10-12 09:46] VITALS: BP 100/66; PULSE 90; TEMP 36.9; O2SAT 97
[2016-10-12] MEDS ORDERED: CEPHALEXIN MONOHYDRATE 500 MG CAP PO SCH (10:00)
--- NOTE | 2016-10-12 14:38 | Discharge Summary ---
Discharge Summary Date of Service Oct 12, 2016. Discharge Summary Admission Date: Oct 10, 2016 at 22:58 Discharge Date: Oct 12, 2016 Discharge Disposition: Home Principal Diagnosis: T1DM with Ketoacidosis Problems/Secondary Diagnoses: 1. Depression 2. Acute UTI Medication Reconciliation New Medications: Cephalexin (Keflex) 500 Mg Cap 1 CAP PO BID for 5 Days, #10 CAP Continued Medications: Clonazepam (Klonopin) 0.5 Mg Tab 0.5 MG PO BID, TAB Etonogestrel/Ethinyl Estradiol (Nuvaring) 1 Ea Vagring 1 EA VAGRING MONTHLY, EA Ferrous Sulfate (Ferrous Sulfate) 325 Mg Tab 325 MG PO BID Hydroxyzine Pamoate (Vistaril) 25 Mg Cap 25 MG PO QID, CAP Insulin Human Lispro (Insulin Humalog Pump ) Pump 1 EA N/A UD, EA Lurasidone Hcl (Latuda) 60 Mg Tab 60 MG PO DAILY Multiple Vitamins W/ Minerals (Womens One Daily) 1 Tab Tab 1 TAB PO DAILY Vilazodone Hcl (Viibryd) 10 Mg Tab 10 MG PO DAILY, TAB Discharge Exam Review of Systems: Constitutional: No chills, No fever Eyes: No worsening of vision ENT: No nasal symptoms Respiratory: No cough, No shortness of breath Cardiovascular: No chest pain Abdomen: No constipation, No diarrhea, No nausea, No pain, No vomiting Musculoskeletal: No calf pain, No swelling Genitourinary - Female: No dysuria Neurologic: No vertigo Hematologic / Lymphatic: No abnormal bleeding/bruising, No clotting problems Integumentary: No rash Physical Exam: General Appearance: WD/WN, no apparent distress Eyes: sclerae normal ENT: hearing grossly normal Neck: supple, no JVD, trachea midline Respiratory/Chest: lungs clear, normal breath sounds, no respiratory distress, no accessory muscle use Cardiovascular: regular rate, rhythm, no gallop, no murmur Abdomen / GI: normal bowel sounds, non tender, soft Extremities: no calf tenderness, no pedal edema Neurologic/Psychiatric: alert, oriented x 3 Skin: normal color, warm/dry Hospital Course ADMISSION: The patient is a 35-year-old female who reports to the emergency department with complaint of vomiting every 30 minutes since around 1500 hrs. earlier in the day, approximately 3 have hours ago. She is a type I diabetic with an insulin pump, and reports that she has not been good about checking her blood sugars lately. She did have urinary symptoms about 2-1/2 weeks ago and went see her PCP, and then followed up about 2 weeks later and was told she'll urinary tract infection and was started on Augmentin at that time. She was unaware traveling from [place] to [place] today and when the vomiting started she presented to the emergency department at [facility]. She has had several episodes of DKA in the past requiring hospitalization, with most recent being 2 years ago. She has been more depressed recently, and she attributes inconsistency which checking her blood sugar secondary to depression. HOSPITAL COURSE: Diabetic Ketoacidosis - T1DM: - Initially treated with insulin gtt and places on NSS with KCl 20 mEq at 150 mL /hr. As glucose improved below 250 she was converted to D5 / NSS with 20 mEq KCl at 150 mL/hr. As glucose readings continued to improve she was given Lantus x 16 units and insulin gtt D/C'd one hour after administration. She was continued on a SSI with goal of 100-180 and correction factor of 30 and carb ratio of 1:10. - Glucose readings fluctuated but improved with regimen. She was given Lantus 10 units on 10/11 and continued on SSI as above. Urinary Tract Infection: Untreated x 2 weeks per patient - Evaluated in an [facility] and reports UTI and Abx for sinusitis - due to memory deficits she is a poor historian -- Report she was given a medication with a Z (cannot confirm z-karly) and Augmentin for sinusitis - No Cx sent on ED urinalysis - Utilized Rocephin 1 g IV daily and converted to Keflex 500 mg BID x 5 more days Home Medications: - All home medications continued as previously prescribed without adjustments Disposition: Patient reports non-compliance with site changes of pump and glucose checks. Placed an order for synthetic department supervisor. Discussed adjusting insulin needs acutely upon discharge due to this non-compliance and poor control. Patient would like to defer adjustments to her endocrinologists and reports she is able to get an appointment easily and will call them upon discharge. During discussion patient appears slow to respond and seemed to have memory deficits. Appears this is baseline and question of depression plus current medication regimen if this is contributing to her non-compliance. Patient does report feelings of depression. Emphasized the need to do BSG AC and HS and more frequently if needed. Advised to restart insulin pump and call truck rental manager to make adjustments. Recommended boluses based on glucose readings and not just administering boluses as it appears that she was not giving herself enough coverage. Explained that her UTI may have contributed to her increase glucose and that moments of illness will need more insulin coverage. Reinforced the need for proper site rotation, accuchecks, and appropriate boluses. Did offer to develop a temporary regimen for coverage of insulin until she can be followed-up by truck rental manager however she continues to want to defer to her. Discussed signs and symptoms of hyperglycemia and the dangers of such. She denies acute complaints and is optimal for discharge home with truck rental manager follow-up. She is a resident of [facility]. Total Time Spent: Greater than 30 minutes This includes examination of the patient, discharge planning, medication reconciliation, and communication with other providers. Discharge Instructions Please refer to the electronic Patient Visit Report (Discharge Instructions) for additional information.
== END 2016-10-12 10:44 | disposition home or self-care (01) | DRG 638 ==
LOC: ENRESERVTM → ENRESERVDT → C.EDB 18:10 → C.MED 22:58
PROVIDERS: ADMIT Hospitalist; ATTEND Hospitalist
DX: E10.10 Type 1 diabetes mellitus with ketoacidosis without coma (principal); N39.0 Urinary tract infection, site not specified; F32.9 Major depressive disorder, single episode, unspecified; J32.9 Chronic sinusitis, unspecified; F41.9 Anxiety disorder, unspecified; R41.3 Other amnesia; E61.1 Iron deficiency; Z96.41 Presence of insulin pump (external) (internal); Z91.19 Patient's noncompliance with other medical treatment and regimen; Z79.4 Long term (current) use of insulin; Z79.899 Other long term (current) drug therapy; Z79.3 Long term (current) use of hormonal contraceptives